=== PATIENT | female | born 1980 ===

== ENCOUNTER → 2019-01-27 | Outpatient (CLI) | payer OTHER | END | disposition home or self-care (01) | LOC: LAB 12:25 | PROVIDERS: ATTEND Nurse Practitioner Family | DX: Z20.9 Contact with and (suspected) exposure to unspecified communicable disease (principal) | CPT/HCPCS: 36415; 86706; 86735; 86762; 86765; 86787 ==

== ENCOUNTER 2023-04-16 14:13 | Emergency (ER) | payer MEDICAID, OTHER ==
[~2023-04-16] VITALS: Ht 167.6 cm; Wt 82.4 kg
[2023-04-16 14:33] VITALS: BP 116/78; PULSE 94; RESP 17; O2SAT 100
[2023-04-16] MEDS ORDERED: PRED20TA2 PO (16:52)
[2023-04-16] MEDS ORDERED: AZITTAB PO (16:52)
[2023-04-16] MEDS ORDERED: ALBUAER3 IN (16:52)
[2023-04-16] MEDS ORDERED: FLUT1SPR5 (16:52)
== END 2023-04-16 17:31 | disposition home or self-care (01) ==
LOC: ER 14:13
DX: J20.8 Acute bronchitis due to other specified organisms (principal); J32.0 Chronic maxillary sinusitis